=== PATIENT | male | born 1945 | race Caucasian/White ===

== ENCOUNTER 2020-07-07 07:49 | Outpatient (CLI) | payer MEDICARE, OTHER ==
[2020-07-07 16:01] LABS: Hemoglobin 13.8 g/dL (14.0-18.0); Mean Corpuscular HGB CONC 33.5 g/dL (32.0-36.0); Mean Corpuscular Hemoglobin 32.5 pg (27.0-31.0); Mean Corpuscular Volume 97.1 fL (78.0-98.0); Mean Platelet Volume 7.1 fL (7.4-10.4); Platelet Count 245 thou/uL (130-400); Red Blood Cell (RBC) Count 4.25 mill/uL (4.70-6.10); White Blood Cell (WBC) Count 7.4 thou/uL (4.8-10.8)
[2020-07-07 16:14] LABS: INR-International Normal Ratio 0.9; PTT 28.6 sec (22.9-36.1)
[2020-07-07 16:40] LABS: Anion Gap 14 mmol/L (10-20); BUN (Urea Nitrogen) 24 mg/dL (8.4-25.7); Calc. Creatinine Clearance 0 mL/min (70-130); Calcium 9.2 mg/dL (7.8-10.44); Carbon Dioxide 22 mmol/L (23-31); Chloride 107 mmol/L (98-107); Estimated GFR-MDRD 51; Glucose 178 mg/dL (83-110); Potassium 5.2 mmol/L (3.5-5.1); Sodium 138 mmol/L (136-145)
[2020-07-08 12:24] LABS: SARS-CoV-2 MS2 Positive; SARS-CoV-2 N Gene Negative; SARS-CoV-2 S Gene Negative; SARS-CoV-2 by NAA Not Detected (NotDetected); SARS-CoV-2 orf1ab Negative
--- NOTE | 2020-07-10 08:41 | EKG ---
Test Reason : Blood Pressure : / mmHG Vent. Rate : 063 BPM Atrial Rate : 063 BPM P-R Int : 200 ms QRS Dur : 162 ms QT Int : 444 ms P-R-T Axes : 041 -20 031 degrees QTc Int : 454 ms Normal sinus rhythm with sinus arrhythmia Right bundle branch block Minimal voltage criteria for LVH, may be normal variant inferior ST elevation cannot r/o acute ME changes Abnormal ECG No previous ECGs available Confirmed by DR. Osmin PIEDRA ([id number]) on 07/10/2020 8:41:02 AM Referred By: MONICA Confirmed By:DR. Osmin PIEDRA
== END 2020-07-07 07:50 | disposition home or self-care (01) ==
LOC: LABBT 07:49
PROVIDERS: ATTEND Surgery
DX: Z01.818 Encounter for other preprocedural examination (principal); Z20.828 Contact with and (suspected) exposure to other viral communicable diseases; M54.16 Radiculopathy, lumbar region; M48.061 Spinal stenosis, lumbar region without neurogenic claudication
CPT/HCPCS: 80048; 85027; 85610; 85730; U0003; 87635; 93005; 93010

== ENCOUNTER 2020-07-12 08:00 | Day surgery (SDC) | payer MEDICARE, OTHER ==
[2020-07-08 10:01] VITALS: BMI 33.0
[2020-07-12] MEDS ORDERED: Clindamycin/D5W 900 mg/50 ml Premix Bag ONE (08:39)
[2020-07-12] MEDS ORDERED: Levofloxacin 500 mg/D5W 100 ml Premix Bag ONE (08:40)
[2020-07-12] MEDS ORDERED: Scopolamine 1.5 mg/72 hour Patch ONE (09:05)
[2020-07-12] MEDS ORDERED: Glycopyrrolate 0.2 MG/ML 5 ML SYRINGE ONE (09:35)
[2020-07-12] MEDS ORDERED: Metoclopramide HCl 10 MG/2 ML VIAL ONE (09:35)
[2020-07-12] MEDS ORDERED: Esmolol 100 MG/10 ML VIAL ONE (09:35)
[2020-07-12] MEDS ORDERED: EPHEDRINE 25 MG/5 ML SYRINGE ONE (09:35)
[2020-07-12] MEDS ORDERED: Ondansetron PF 4 MG/2 ML Vial ONE (09:35)
[2020-07-12] MEDS ORDERED: PROPOFOL 200 MG/20 ML VIAL ONE (09:35)
[2020-07-12] MEDS ORDERED: Rocuronium Bromide 10 MG/ML (10ML VIAL) ONE (09:35)
[2020-07-12] MEDS ORDERED: Thrombin 5000 UNITS/5 ML VIAL ONE (09:59)
[2020-07-12] MEDS ORDERED: Fentanyl 100 MCG/2 ML VIAL ONE ×3 (10:09→13:28)
[2020-07-12] MEDS ORDERED: Milk Of Magnesia 30 ML UDCUP PO PRN (12:36)
[2020-07-12] MEDS ORDERED: Promethazine HCl 25 MG/ML VIAL IM PRN (12:36)
[2020-07-12] MEDS ORDERED: Bisacodyl 10 MG SUPP PR PRN (12:36)
[2020-07-12] MEDS ORDERED: diphenhydrAMINE 25 MG CAP PO PRN (12:36)
[2020-07-12] MEDS ORDERED: traMADol HCl 50 MG TAB PO PRN (12:36)
[2020-07-12] MEDS ORDERED: HYDROcodone/Acetaminophen 7.5/325 mg Tablet PO PRN ×2 (12:36)
[2020-07-12] MEDS ORDERED: Mag-Al 1200 mg/1200 mg/30 ML UDCUP PO PRN (12:36)
[2020-07-12] MEDS ORDERED: Fleet Enema 133 ML BOT PR PRN (12:36)
[2020-07-12] MEDS ORDERED: Ondansetron HCl/PF 4 MG/2 ML Vial IVP PRN (12:40)
[2020-07-12] MEDS ORDERED: Cyclobenzaprine 10 MG TAB PO PRN (12:41)
[2020-07-12] MEDS ORDERED: PROVENTIL INHALER 6.7 G (200 INHALATIONS) INH PRN (12:42)
[2020-07-12] MEDS: Acetaminophen 325 MG TAB PO PRN ×2 (16:54→23:52)
[2020-07-12] MEDS ORDERED: Clindamycin/D5W 900 MG in Premix Bag 1 BAG IVPB SCH (18:15)
[2020-07-12] MEDS ORDERED: metFORMIN 500 MG TAB PO SCH (18:30)
[2020-07-12] MEDS: Sodium Chloride 0.9% 1,000 ML IV SCH (20:06)
[2020-07-12] MEDS: Metoprolol Tartrate 50 MG TAB PO SCH (20:13)
[2020-07-12] MEDS ORDERED: Montelukast Sodium 10 mg Tablet PO SCH (21:00)
[2020-07-12] MEDS ORDERED: Loratadine 10 MG TAB PO SCH (21:00)
[2020-07-12] MEDS ORDERED: Dextrose 50% Abboject 50 ML SYRINGE IVP PRN (21:15)
[2020-07-12] MEDS ORDERED: HumaLOG 300 UNITS/3 ML VIAL SC PRN ×2 (21:15)
[2020-07-12] MEDS ORDERED: Dextrose 5% in Water 1,000 ML IV PRN (21:15)
[2020-07-12] MEDS: traMADol HCl 50 MG TAB PO PRN (23:52)
[2020-07-13] MEDS ORDERED: Ketorolac Tromethamine 30 MG/ML VIAL IVP SCH (01:45)
[2020-07-13] MEDS ORDERED: Clindamycin/D5W 900 MG in Premix Bag 1 BAG IVPB SCH (02:00)
[2020-07-13] MEDS: Acetaminophen 325 MG TAB PO PRN (05:56)
[2020-07-13] MEDS: traMADol HCl 50 MG TAB PO PRN (05:57)
[2020-07-13] MEDS ORDERED: Mometasone 200 MCG/Formoterol 5 MCG 120 PUFF INHALER INH SCH (06:30)
--- NOTE | 2020-07-13 07:04 | OP ---
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 PROCEDURE PERFORMED: L4-L5 laminectomy, partial facetectomy, foraminotomies. DESCRIPTION OF PROCEDURE: After informed consent was obtained from the patient, the patient was brought to the OR. Proper patient, pause, and identification were carried out. He was placed under excellent general endotracheal anesthesia and positioned prone on the OR table. All appropriate points were padded. We identified the L4-L5 dorsal spines and lamina. A linear sammie was made over this region. This area was sterilely cleansed, prepared, and draped. Proper patient, pause, and identification were carried out. The wound was then opened with a combination of sharp, monopolar, and blunt dissection. L4-L5 laminectomy, partial facetectomy, and foraminotomies were performed. Localization film confirmed our area of interest. There was no spinal fluid leak. Copious irrigation occurred throughout as did maximizing hemostasis. The wound was then closed in anatomic layers following sprinkling of vancomycin powder. The patient emerged from anesthesia. Job ID: [id number]
[2020-07-13] MEDS: Sodium Chloride 0.9% 1,000 ML IV SCH (07:19)
[2020-07-13 07:47] VITALS: TEMP 97.8
[2020-07-13] MEDS ORDERED: metFORMIN 500 MG TAB PO SCH (08:00)
[2020-07-13] MEDS ORDERED: Lisinopril 20 MG TAB PO SCH (09:00)
[2020-07-13] MEDS ORDERED: Cholecalciferol 1,000 UNITS (25 MCG) TAB PO SCH (09:00)
[2020-07-13] MEDS ORDERED: Vit A,C & E/Lutein/Minerals Tablet PO SCH (09:00)
[2020-07-13] MEDS ORDERED: HumuLIN 70/30 (300 UNITS/3 ML VIAL) SC SCH (09:00)
[2020-07-13] MEDS ORDERED: Atorvastatin Calcium 40 MG TAB PO SCH (09:00)
[2020-07-13] MEDS: Metoprolol Tartrate 50 MG TAB PO SCH (10:47)
[2020-07-13 11:23] VITALS: BP 117/63
--- NOTE | 2020-07-13 13:46 | PRG ---
DATE OF SERVICE: 07/13/2020 Mr. Wright is postoperative day 1, lumbar laminectomy. He is doing very well with resolution in his leg pain. He has good strength. He states he does feel as if his right leg feels weak at times, but his strength is full on exam. We will plan for discharge today. Job ID: [id number]
== END 2020-07-13 13:15 | disposition home or self-care (01) ==
LOC: SDC 08:00 → SURG A 12:43 → SDC 07-13 13:15
PROVIDERS: ATTEND Surgery
PROC: 01NB0ZZ Release Lumbar Nerve, Open Approach (ICD-10-PCS; principal; 2020-07-12)
DX: M48.061 Spinal stenosis, lumbar region without neurogenic claudication (principal); M54.16 Radiculopathy, lumbar region; I10 Essential (primary) hypertension; E78.5 Hyperlipidemia, unspecified; I25.10 Atherosclerotic heart disease of native coronary artery without angina pectoris; E11.9 Type 2 diabetes mellitus without complications; J45.909 Unspecified asthma, uncomplicated; N40.0 Benign prostatic hyperplasia without lower urinary tract symptoms; M19.90 Unspecified osteoarthritis, unspecified site; Z79.02 Long term (current) use of antithrombotics/antiplatelets; Z79.4 Long term (current) use of insulin; Z79.899 Other long term (current) drug therapy; Z88.0 Allergy status to penicillin; Z88.1 Allergy status to other antibiotic agents; Z88.5 Allergy status to narcotic agent; Z88.2 Allergy status to sulfonamides; Z88.8 Allergy status to other drugs, medicaments and biological substances; Z91.041 Radiographic dye allergy status; Z95.1 Presence of aortocoronary bypass graft; Z95.5 Presence of coronary angioplasty implant and graft
CPT/HCPCS: 36416; 76000; J1815; J1885; J1956; J2405; J2704; J2765; J3010; J3370; J3490

== ENCOUNTER 2022-04-03 13:25 | Outpatient (CLI) | payer MEDICARE | END 2022-04-03 13:26 | disposition home or self-care (01) | LOC: SCSMRI 13:25 | PROVIDERS: ATTEND Family Medicine | DX: R42 Dizziness and giddiness (principal) | CPT/HCPCS: 70551 ==